=== PATIENT | female | born 2000 | race Caucasian/White ===

== ENCOUNTER 2022-06-25 13:07 | Emergency (ER) | payer OTHER ==
[2022-06-25 14:12] LABS: #Monocytes 0.6 10x3/uL (0.0-1.1); #Neutrophils 5.2 10x3/uL (1.5-8.4); %Basophils 0.4 % (0.0-2.0); %Eosinophils 0.4 % (0.0-6.0); %Neutrophils 66.9 % (40.0-75.0); Mean Corpuscular HGB CONC 31.8 g/dL (32.0-36.0); Mean Platelet Volume 11.6 fl (7.4-10.4); Platelet Count 266 10x3/uL (150-450); RBC Distribution Width 15.4 % (11.5-14.5); Red Blood Cell (RBC) Count 4.07 10x6/uL (3.90-5.03); White Blood Cell (WBC) Count 7.7 10x3/uL (3.5-10.5)
== END 2022-06-25 16:47 | disposition home or self-care (01) ==
LOC: CSHERS 13:07
DX: N92.6 Irregular menstruation, unspecified (principal)
CPT/HCPCS: 36415; 76856; 84702; 85025; 86900; 86901